=== PATIENT | female | born 1945 | race Caucasian/White ===

== ENCOUNTER → 2016-12-15 | Outpatient (CLI) | payer OTHER | LOC: HYPER 06:55 | DX: T81.31XA Disruption of external operation (surgical) wound, not elsewhere classified, initial encounter (principal); L21.9 Seborrheic dermatitis, unspecified; L57.0 Actinic keratosis; L82.1 Other seborrheic keratosis; F10.10 Alcohol abuse, uncomplicated; Z90.710 Acquired absence of both cervix and uterus; Z85.828 Personal history of other malignant neoplasm of skin; Z87.891 Personal history of nicotine dependence; Y83.8 Other surgical procedures as the cause of abnormal reaction of the patient, or of later complication, without mention of misadventure at the time of the procedure; Y92.89 Other specified places as the place of occurrence of the external cause ==

== ENCOUNTER → 2016-12-29 | Outpatient (CLI) | payer OTHER | LOC: HYPER 07:04 | DX: T81.89XD Other complications of procedures, not elsewhere classified, subsequent encounter (principal); L21.9 Seborrheic dermatitis, unspecified; L82.1 Other seborrheic keratosis; L57.0 Actinic keratosis; D48.5 Neoplasm of uncertain behavior of skin; C44.300 Unspecified malignant neoplasm of skin of unspecified part of face; F10.10 Alcohol abuse, uncomplicated; Z90.710 Acquired absence of both cervix and uterus; Z87.891 Personal history of nicotine dependence; Z72.89 Other problems related to lifestyle; Y83.8 Other surgical procedures as the cause of abnormal reaction of the patient, or of later complication, without mention of misadventure at the time of the procedure ==

== ENCOUNTER → 2017-06-04 | Outpatient (CLI) | payer OTHER | LOC: HYPER 06:48 | DX: T81.89XD Other complications of procedures, not elsewhere classified, subsequent encounter (principal); J34.89 Other specified disorders of nose and nasal sinuses; Z48.89 Encounter for other specified surgical aftercare; F10.10 Alcohol abuse, uncomplicated; Z90.710 Acquired absence of both cervix and uterus; Z87.891 Personal history of nicotine dependence; Z72.89 Other problems related to lifestyle; Y83.8 Other surgical procedures as the cause of abnormal reaction of the patient, or of later complication, without mention of misadventure at the time of the procedure ==

== ENCOUNTER → 2017-09-08 | Outpatient (CLI) | payer OTHER | LOC: HYPER 06:51 | DX: T81.89XA Other complications of procedures, not elsewhere classified, initial encounter (principal); L57.0 Actinic keratosis; J34.89 Other specified disorders of nose and nasal sinuses; F10.10 Alcohol abuse, uncomplicated; Z90.710 Acquired absence of both cervix and uterus; Z87.891 Personal history of nicotine dependence; Z48.89 Encounter for other specified surgical aftercare; Y92.89 Other specified places as the place of occurrence of the external cause; Y83.8 Other surgical procedures as the cause of abnormal reaction of the patient, or of later complication, without mention of misadventure at the time of the procedure ==